=== PATIENT | male | born 2000 | race African-American/Black ===

== ENCOUNTER 2021-02-27 00:02 | Emergency (ER) | payer MEDICAID, OTHER | END 2021-02-27 00:29 | disposition home or self-care (01) | LOC: BURERS 00:02 | DX: T16.1XXA Foreign body in right ear, initial encounter (principal); F17.290 Nicotine dependence, other tobacco product, uncomplicated | CPT/HCPCS: 69200 ==

== ENCOUNTER 2022-05-24 08:52 | Emergency (ER) | payer MEDICAID, SELFPAY ==
[2022-05-24 10:10] LABS: Hemoglobin 14.6 g/dL (14.0-18.0); Mean Corpuscular HGB CONC 32.4 g/dL (32.0-36.0); Mean Corpuscular Hemoglobin 26.2 pg (27.0-31.0); Mean Corpuscular Volume 81.1 fl (78.0-98.0); Mean Platelet Volume 9.3 fL (7.4-10.4); Platelet Count 331 thou/uL (130-400); RBC Distribution Width 12.3 % (11.5-14.5); Red Blood Cell (RBC) Count 5.57 mill/uL (4.70-6.10)
[2022-05-24 10:13] LABS: ALT (SGPT) 52 U/L (8-55); AST (SGOT) 28 U/L (5-34); Albumin 3.8 g/dL (3.5-5.0); Alkaline Phosphatase 167 U/L (40-110); Anion Gap 12 mmol/L (10-20); BUN (Urea Nitrogen) 13 mg/dL (8.9-20.6); Bilirubin, Total 0.7 mg/dL (0.2-1.2); Calc. Creatinine Clearance 0 mL/min (70-130); Calcium 9.9 mg/dL (7.8-10.44); Carbon Dioxide 23 mmol/L (22-29); Chloride 106 mmol/L (98-107); Estimated GFR 140; Globulin 3.1 g/dL (2.4-3.5); Glucose 105 mg/dL (70-105); Potassium 4.1 mmol/L (3.5-5.1); Protein, Total 6.9 g/dL (6.0-8.3); Sodium 137 mmol/L (136-145)
[2022-05-24 10:40] LABS: Eosinophils 2 % (0-10); Lymphocytes 60 % (21-51); MDiff Complete? YES; Monocytes 15 % (0-10); Neutrophil 23 % (42-75); Platelet Morphology Comment Appears Adequate; RBC Morphology Normal
== END 2022-05-24 12:23 | disposition home or self-care (01) ==
LOC: BURERS 08:52
DX: E03.9 Hypothyroidism, unspecified (principal)
CPT/HCPCS: 71045; 80053; 83880; 84443; 84484; 85025; 93005

== ENCOUNTER 2023-03-31 01:11 | Emergency (ER) | payer OTHER ==
[2023-03-31] MEDS ORDERED: Ibuprofen 800 MG TAB ONE (01:47)
== END 2023-03-31 01:50 | disposition home or self-care (01) ==
LOC: BURERS 01:11
DX: S62.306A Unspecified fracture of fifth metacarpal bone, right hand, initial encounter for closed fracture (principal); W22.09XA Striking against other stationary object, initial encounter